=== PATIENT | male | born 1975 | race Caucasian/White ===

== ENCOUNTER 2023-02-04 12:53 | Emergency (ER) | payer OTHER, SELFPAY ==
[2023-02-04 13:01] VITALS: BP 145/93; PULSE 94; RESP 16; TEMP 36.8; O2SAT 96; BMI 25.5
--- NOTE | 2023-02-04 13:19 | CRLHL7_ITS ---
For Patients: As a result of the Century Cures Act, medical imaging exams and procedure reports are released immediately into your electronic medical record. You may view this report before your referring provider. If you have questions, please contact your health care provider. INDICATION: Right chest wall injury COMPARISON: None TECHNIQUE: : CT examination of the chest was performed without contrast. Thin axial sections were obtained from above the apices of the lungs to the lung bases. Please note that all CT scans at this facility use dose modulation, iterative reconstruction, and/or weight-based dosing when appropriate to reduce radiation dose to as low as reasonably achievable. FINDINGS: : HEART and MEDIASTINUM: The heart size is normal. There is no mediastinal or hilar adenopathy or mass. There is no pericardial effusion.Small hiatal hernia. The esophagus is fluid-filled and thickened probably due to reflux. Vascular calcifications noted involving the coronary arteries. LUNGS and PLEURAL SPACES: Minimal basilar airspace process probably atelectasis, right greater than left. Trace right pleural fluid. No pneumothorax on either side. VISUALIZED UPPER ABDOMEN: Markedly atrophic left kidney. The right kidney appears to show compensatory hypertrophy as partially visualized. OSSEOUS STRUCTURES: Acute nondisplaced right lateral 6th rib fracture. Degenerative changes of the spine. TUBES and LINES: None. IMPRESSION: 1. Acute nondisplaced right lateral 6th rib fracture. Minimal bibasilar atelectasis, right greater than left. Trace right effusion. No pneumothorax. 2. Markedly atrophic left kidney. Compensatory hypertrophy of the right kidney 3. Mediastinal vascular calcifications including the coronary arteries. Small hiatal hernia. Fluid and thickening of the esophagus probably indicating reflux. Please note that all CT scans at this facility use dose modulation, iterative reconstruction, and/or weight-based dosing when appropriate to reduce radiation dose to as low as reasonably achievable. Dictated by Gadiel Bowman MD @ 02/04/2023 2:19:56 PM (Electronically Signed)
--- NOTE | 2023-02-04 13:20 | ED.FALL ---
HPI - Fall General Chief Complaint: Fall/Minor Trauma Stated Complaint: Fell last night, back pain Time Seen by Provider: 02/04/23 13:11 History of Present Illness HPI Narrative: Patient is a 47-year-old healthy gentleman who was walking his dog last night when he was pulled forward patient lost his balance and fell landing on lip of the cement with the right side of his chest in the posterior to mid axillary line. Patient has severe pain in this location. He really has no shortness of breath no cough no hemoptysis no fevers no chills. Patient has been taking Tylenol for to limited extent with no improvement of his symptoms. Patient has noted mild bruising but no deformities. Patient is otherwise uninjured he did not hit his head and did not lose consciousness. Related Data Home Medications Medication Instructions Recorded Confirmed omeprazole 20 mg tablet,delayed mg PO 05/12/22 05/12/22 release Allergies Allergy/AdvReac Type Severity Reaction Status Date / Time No Known Allergies Allergy Unknown Verified 05/12/22 15:38 Review of Systems Status of ROS: Reports: 10 or more systems reviewed and unremarkable except as noted in History and below PFSH PFSH Surgical History History of esophagogastroduodenoscopy (EGD) ?Z98.890 - Other specified postprocedural states (ICD-10) History of vasectomy ?Z98.52 - Vasectomy status (ICD-10) Family History Family/Other Stroke, Onset Age: 52 Social History Narrative: Does not use illicit drugs Former smoker Occasional alcohol consumption Smoking Status: Former smoker How often do you have a drink containing alcohol: 2-3 times a week How many standard drinks containing alcohol do you have on a typical day: 1 or 2 AUDIT-C Alcohol total score: 3 Non-prescribed substance use: denies use service: No Exam Narrative: Exam Narrative: EXAM GENERAL: Patient appears comfortable and well. EYES: No scleral icterus. ENT: Tympanic membranes and oropharynx normal. THYROID: no thyroid nodules or thyromegaly. LYMPH: No supraclavicular or cervical lymphadenopathy. SKIN: Visible skin seen during exam normal or with benign process only. EXT: No dependent lower extremity pedal edema. HEART: Regular rate and rhythm with no murmurs, rubs, or gallops. LUNGS: Clear to auscultation bilaterally with no crackles or wheezes. Chest wall is tender to palpation in the right posterior mid axillary line. ABD: Soft, non tender, non distended. PSYCH: Good eye contact, speech is not pressured. Const: Vital Signs, click to edit/add: Vital Signs - 24 hr 02/04/23 13:01 02/04/23 14:16 Temperature 98.2 F Pulse Rate [Right Pulse Oximeter] 94 72 Respiratory Rate 16 Blood Pressure [Ri ght Upper Arm] 145/93 H 120/86 Pulse Oximetry 96 99 Oxygen Delivery Me thod Room Air Room Air Course Course Hospital Course: Patient seen examined. CT of the chest without contrast ordered. Vital Signs Vital signs: Initial Vital Signs Temperature 98.2 F 02/04/23 13:01 Temperature Source Temporal Artery Scan 02/04/23 13:01 Pulse Rate 94 02/04/23 13:01 Pulse Rhythm Regular 02/04/23 13:01 Respiratory Rate 16 02/04/23 13:01 Blood Pressure 145/93 H 02/04/23 13:01 Blood Pressure Mean 110 02/04/23 13:01 Pulse Oximetry 96 02/04/23 13:01 Oxygen Delivery Method Room Air 02/04/23 13:01 Vital Signs Temperature 98.2 F 02/04/23 13:01 Pulse Rate 94 02/04/23 13:01 Respiratory Rate 16 02/04/23 13:01 Blood Pressure 145/93 H 02/04/23 13:01 Pulse Oximetry 96 02/04/23 13:01 Oxygen Delivery Method Room Air 02/04/23 13:01 Temperature 98.2 F 02/04/23 13:01 Pulse Rate 72 02/04/23 14:16 Respiratory Rate 16 02/04/23 13:01 Blood Pressure 120/86 02/04/23 14:16 Pulse Oximetry 99 02/04/23 14:16 Oxygen Delivery Method Room Air 02/04/23 14:16 MDM - Fall MDM Narrative Medical decision making narrative: Patient is a 47-year-old gentleman who fell and struck the right side of his chest on the edge of the concrete wall walking his dog. He presents with pain in the right mid axillary to posterior axillary line. The chest shows a single nondisplaced rib fracture at 6. Patient was given 30 mg of IM Toradol. He will be discharged home with symptomatic treatment plus Vicodin as needed no driving or using any machinery. Patient follow-up with his primary physician as needed. Differential diagnosis included contusion of the chest rib fracture pneumothorax cardiac contusion lung contusion pleural effusion Medical Records Attestation: I reviewed the patient's medical records. Discharge Plan Discharge Clinical Impression: Fracture of rib Patient Disposition: Home, Self-Care Condition: Stable Instructions: Rib Fracture (ED) Additional Instructions: Ice Tylenol Motrin [place] as needed Follow-up with primary care as needed Activity Level: No Restrictions Discharge Diet: Regular Prescriptions: No Action omeprazole 20 mg tablet,delayed release (DR/EC) PO Follow Up/Referrals: Nisa Castellanos PA-C [Primary Care Provider] - Stand Alone Forms: [employer] Info Instructions
[2023-02-04 14:16] VITALS: BP 120/86; PULSE 72; O2SAT 99
[2023-02-04] MEDS: KETOROLAC 30 MG/ML inj IM (14:23)
== END 2023-02-04 14:39 | disposition home or self-care (01) ==
PROVIDERS: Emergency Provider Internal Medicine; PCP Physician Assistant Medical
DX: S22.31XA Fracture of one rib, right side, initial encounter for closed fracture (principal); W01.0XXA Fall on same level from slipping, tripping and stumbling without subsequent striking against object, initial encounter
CPT/HCPCS: 71250; 96372; 99283; J1885

== ENCOUNTER 2023-04-16 10:40 | Outpatient (CLI) | payer OTHER, SELFPAY ==
--- NOTE | 2023-04-16 11:00 | CRLHL7_ITS ---
For Patients: As a result of the Century Cures Act, medical imaging exams and procedure reports are released immediately into your electronic medical record. You may view this report before your referring provider. If you have questions, please contact your health care provider. INDICATION: ATROPHIC LEFT KIDNEY TECHNIQUE: Grayscale, color Doppler and power Doppler evaluation of the right kidney and right renal artery. COMPARISON: CT chest 02/04/2023 FINDINGS: UNILATERAL LEFT RENAL ARTERY DUPLEX ULTRASOUND ABDOMINAL AORTA: Peak systolic velocity = 70 cm/s. No aortic aneurysm. RIGHT KIDNEY: 14.1 cm in length. There is no hydronephrosis. Peak systolic velocity = 166 cm/second Renal artery to aortic peak systolic velocity ratio = 1.2 Resistive indices: 0.6 Renal vein = patent LEFT KIDNEY: Severely atrophied and poorly visualized. IMPRESSION: No evidence of significant renal artery stenosis regarding the right renal artery. Dictated by Matt Marcus MD @ 04/16/2023 2:09:14 PM (Electronically Signed)
== END 2023-04-16 10:41 | disposition home or self-care (01) ==
LOC: US 10:40
PROVIDERS: PCP Physician Assistant Medical; Visit Provider Physician Assistant Medical
DX: N26.1 Atrophy of kidney (terminal) (principal); Z82.49 Family history of ischemic heart disease and other diseases of the circulatory system
CPT/HCPCS: 76775; 93975

== ENCOUNTER 2023-05-14 08:15 | Outpatient (CLI) | payer OTHER, SELFPAY | END 2023-05-14 08:16 | disposition home or self-care (01) | LOC: NFLDREF 20:55 | PROVIDERS: PCP Physician Assistant Medical; Referring Provider Physician Assistant Medical; Visit Provider Physician Assistant Medical | DX: N26.1 Atrophy of kidney (terminal) (principal); Z82.49 Family history of ischemic heart disease and other diseases of the circulatory system; Z13.6 Encounter for screening for cardiovascular disorders; Z13.29 Encounter for screening for other suspected endocrine disorder | CPT/HCPCS: 80053; 80061; 84443 ==